=== PATIENT | female | born 1965 | race Caucasian/White ===

== ENCOUNTER 2023-10-22 08:06 | Day surgery (SDC) | payer OTHER ==
[2023-10-22] VITALS (17 sets, daily range): BP systolic 106–156; BP diastolic 70–141
[~2023-10-22] VITALS: Ht 163 cm; Wt 69.0 kg
[~2023-10-22 08:06] MED LIST: Budeprion Xl300 MG PO; Diclofenac Sod100 MG PO; Lactated Ringer's 1,000 ML IV SCH; MULVITA PO; NEURONTIN300 MG PO; TRAZ100 PO
[2023-10-22] MEDS ORDERED: ESCI10 PO (08:29)
[2023-10-22] MEDS ORDERED: propofoL 40 ML IV ONE (09:09)
[2023-10-22] MEDS ORDERED: Midazolam HCl 1MG / ML 2ML Vial ONE ×2 (09:09→09:25)
--- NOTE | 2023-10-22 09:16 | NUR ---
10/22/23 0916 Rebecca Montenegro HISTORY, CHART, MEDICATIONS AND ALLERGIES REVIEWED BEFORE START OF PROCEDURE. PATIENT CONFIRMS NPO STATUS AND AGREES WITH SCHEDULED PROCEDURE. 3-LEAD EKG REVIEWED WITH PHYSICIAN PRIOR TO START OF PROCEDURE. MONITOR INTACT WITH CONTINUOUS PULSE OXIMETRY,CAPNOGRAPHY, 3-LEAD EKG, INTERMITTENT BP. SUPPLEMENTAL O2 TO BE TITRATED THROUGHOUT PROCEDURE TO MAINTAIN O2 SATURATION ABOVE 90%. PATIENT DETERMINED TO BE ASA APPROPRIATE FOR PROPOFOL SEDATION PRIOR TO START OF PROCEDURE BY . MALLAMPATI CLASS 3 AIRWAY: VISUALIZATION OF ONLY THE BASE OF THE UVULA.
--- NOTE | 2023-10-22 10:23 | NUR ---
DISCHARGE PT A&OX4, VSS/RA, AZUL PO, DRESSED SELF, DENIES PAIN, BEDSIDE, DC INS PROVIDED, PT/H REP UNDERSTANDING. LEFT FLOOR VIA WC WITH DC VOL TO GO HOME WITH H WITH ALL PERSONAL POSSESSIONS. IV DC'D.
== END 2023-10-22 10:20 | disposition home or self-care (01) ==
LOC: ORSCMMR 08:06 → ORD 09:00 → ORSCMMR 10:20
PROVIDERS: Internal Medicine Gastroenterology
PROC: 0DBM8ZX Excision of Descending Colon, Via Natural or Artificial Opening Endoscopic, Diagnostic (ICD-10-PCS; principal; 2023-10-22 09:00)
PROC: 0DBL8ZX Excision of Transverse Colon, Via Natural or Artificial Opening Endoscopic, Diagnostic (ICD-10-PCS; principal; 2023-10-22 09:00)
DX: Z12.11 Encounter for screening for malignant neoplasm of colon (principal); K63.5 Polyp of colon; D12.3 Benign neoplasm of transverse colon; K57.30 Diverticulosis of large intestine without perforation or abscess without bleeding; K64.8 Other hemorrhoids; F32.A Depression, unspecified; Z79.899 Other long term (current) drug therapy
CPT/HCPCS: 88305; J2250; J2704; J7120

== ENCOUNTER 2023-10-24 11:50 | Emergency (ER) | payer OTHER ==
[~2023-10-24] VITALS: Ht 165.1 cm; Wt 69.8 kg
[~2023-10-24 11:50] MED LIST changes: +ESCI10 PO; -Lactated Ringer's 1,000 ML IV SCH
[2023-10-24 12:24] VITALS: BP 176/102
[2023-10-24] MEDS ORDERED: LORazepam 1 MG Tab PO ONE (13:00)
[2023-10-24] MEDS ORDERED: HYDROcodone 5-APAP 325 TAB PO ONE (13:00)
[2023-10-24] MEDS ORDERED: HYDR1TAB94 PO (13:50)
== END 2023-10-24 14:00 | disposition home or self-care (01) ==
LOC: ER 11:50
DX: M54.50 Low back pain, unspecified (principal); M25.512 Pain in left shoulder; V89.2XXA Person injured in unspecified motor-vehicle accident, traffic, initial encounter; Z79.899 Other long term (current) drug therapy
CPT/HCPCS: 99283; A9270